=== PATIENT | male | born 1965 | race Caucasian/White ===

== ENCOUNTER 2016-10-16 13:44 | Inpatient (IN) | payer OTHER ==
--- NOTE | ~2016-10-16 | IDS ---
Interim Discharge Summary [facility] [address] [place]. [address] NAME: ROCAEL CORREA : 63 STATUS : ADM IN [facility]#: [id number] AGE: 51 ADM/REG DATE : 10/16/16 MR#: [id number] REPORT SERV DATE: 10/20/16 DICTATED BY: DOV KINGSLEY DATE: 10/20/16 REPORT STATUS : Draft TRANSCRIBED BY: MODIsaac DATE: 10/20/16 ADMISSION DATE: 10/16/2016 DISCHARGE DATE: INTERIM DISCHARGE DIAGNOSES: 1. Acute cerebrovascular accident - left hemiplegia. 2. Hypertension. 3. Hypotension. 4. Tobacco abuse. 5. Previous alcohol abuse in the past. PROCEDURES: 1. EEG, 10/17/2016, concern for seizure-like activity due to the presence of rhythmic sharp activities originating from the T5 electrode with field of spray to the left central parietal area. 2. MRI of the head, 10/16/2016, showed a late hyperacute infarction of the hypothalamus, thalamus, brainstem, and cerebral peduncular region. 3. 2D echocardiogram, 10/17/2016, shows an EF of 60%-65%. Mild diastolic dysfunction. Normal RV and LV size and function. No evidence of ASD or PFO on agitated saline contrast study. No valvular problems. HOSPITAL COURSE: A 51-year-old male, admitted 10/16/2016, with evidence of stroke-like symptoms, affecting his left arm and left leg with significant weakness along with left facial droop. He was given tPA in the emergency room with the guidance of Neurology, Dr. Sarah Jimenez. He temporarily got improvement of his symptoms before he even left the emergency room. However, he subsequently developed a return of his left-sided hemiplegia symptoms. He had subsequent noncontrast CT of the head that did not show any evidence of acute bleed. There was some concern that he did have seizure activity on his EEG, so Neurology did start antiepileptic medications. At the recommendation of Neurology, he was put on pressors that included dopamine and Levophed because of borderline low normal blood pressure. Those eventually were able to be weaned off over the subsequent couple of days. His cortisol level is normal at that time. Neurology requested a ASAEL to rule out embolic stroke source. It was supposed to be done on Friday, but he had some applesauce for his swallow study. It is supposed to be done tomorrow on 10/21. He did pass a swallow study and he is eating. He still has significant deficits on his left side involving his left arm and left leg and left face. He is able to move a little bit of his fingers and has a little bit of extensor push on his legs against resistance. OT and PT are following. CEP/MODL Dov Kingsley DO / [id number] Interim Discharge Summary [address] [address] NAME: ROCAEL CORREA : 63 STATUS : ADM IN PAT#: [id number] AGE: 51 ADM/REG DATE : 10/16/16 MR#: [id number] REPORT SERV DATE: 10/20/16 DICTATED BY: DOV KINGSLEY DATE: 10/20/16 REPORT STATUS : Draft TRANSCRIBED BY: MODL DATE: 10/20/16 CC: Dov Kingsley DO
--- NOTE | ~2016-10-16 | HP ---
History And Physical [place] [id number] [facility] [place]. [address] NAME: ROCAEL CORREA : 63 STATUS : ADM IN [facility]#: [id number] AGE: 51 ADM/REG DATE : 10/16/16 MR#: [id number] REPORT SERV DATE: 10/16/16 DICTATED BY: DOV KINGSLEY DATE: 10/16/16 REPORT STATUS : Draft TRANSCRIBED BY: MODIsaac DATE: 10/16/16 DATE OF ADMISSION: 10/16/2016 HISTORY OF PRESENT ILLNESS: This is a 51-year-old white male, who is a , comes to the hospital because of new-onset left arm and left leg numbness and weakness. He states the symptoms started with his left arm and then progressed to his leg. He states that it felt like his arm and leg were asleep. He also states that he was dropping things like his phone today when he was trying to hold them. He was evaluated in the emergency room and it was determined that he was having an acute CVA. A noncontrast CT scan of the brain was ordered and it did not show any evidence of bleeding. He ruled in for a tPA. His initial NIH scale was a 4. Dr. Sarah Jimenez saw the patient and ordered tPA to be given. By the time I saw the patient, it was already running. In discussion with the nurse, and after my examination neurologically, it appears that his symptoms of his left arm and left leg weakness are in fact improving. The patient denies any history of any previous stroke. He states he has been having some problems with intermittent dizziness recently. He also is a heavy smoker of one and half packs per day, and he also has hypertension. They did a CTA of the neck and brain that showed no evidence of significant arterial abnormalities within the neck or brain. REVIEW OF SYSTEMS: Denies any shortness of breath, cough, chest pain. No nausea, vomiting, abdominal pain, or seizures. PAST MEDICAL HISTORY: He has had a seizure in the past related to benzodiazepine withdrawal, hypertension, anxiety, previous heavy alcohol abuse, but quit two years ago. Disability due to previous fracture of different vertebrae of the spine. PAST SURGICAL HISTORY: None significant. ALLERGIES: NONE. SOCIAL HISTORY: Heavy smoker of one and half packs per day. He has been smoking since age 16. Former heavy alcohol use, but quit two years ago. He is and does have four children. Lives with his mother. HOME MEDICATIONS: Awaiting for Pharmacy to reconcile. FAMILY HISTORY: Had uncle who had black lung. Also had a grandmother who had cancer. PHYSICAL EXAMINATION: VITAL SIGNS: Per nursing flow sheet. GENERAL: Able to sustain a conversation. No acute distress. Maintains good eye contact. Maybe slight slurring of his speech. NEUROLOGIC: GCS 15. Slight slurring of speech. He complains of some left-sided numbness of his face. He has pretty equal strength in both left and right upper extremities and left History And Physical [address] [place]. [address] NAME: ROCAEL CORREA : 63 STATUS : ADM IN [facility]#: [id number] AGE: 51 ADM/REG DATE : 10/16/16 MR#: [id number] REPORT SERV DATE: 10/16/16 DICTATED BY: DOV KINGSLEY DATE: 10/16/16 REPORT STATUS : Draft TRANSCRIBED BY: MODL DATE: 10/16/16 lower and right lower extremities. Nursing says that this has markedly improved. HEENT: Pupils are equal, round, and reactive to light. Throat is clear. No teeth in the upper and poor dentition in the bottom. NECK: Trachea midline. HEART: Regular rate and rhythm. LUNGS: Clear to auscultation bilaterally. GASTROINTESTINAL: Soft, nontender, nondistended. EXTREMITIES: No edema, cyanosis, or clubbing. LABORATORY DATA: Labs reviewed. ASSESSMENT AND PLAN: 1. Acute cerebrovascular accident. 2. Hypertension. 3. Tobacco abuse. 4. Previous alcohol abuse. Stroke protocol has already been implemented. Getting tPA. MRI and echo are ordered along with fasting lipid profile. Also, ordered bronchodilators given his history of tobacco abuse and reported diagnosis of chronic obstructive pulmonary disease. He sees Dr. Lenka Dickey as an outpatient. CEP/MODL Dov Kingsley DO / [id number] CC: DO Lenka Alfaro M.D.
--- NOTE | ~2016-10-16 | DS ---
Discharge Summary [facility] [address] [facility] [place]. [address] NAME: ROCAEL CORREA : 63 STATUS : DIS IN PAT#: [id number] AGE: 51 ADM/REG DATE : 10/16/16 MR#: [id number] REPORT SERV DATE: 10/31/16 DICTATED BY: NATIVIDAD STANLEY DATE: 10/25/16 REPORT STATUS : Draft TRANSCRIBED BY: PAN DATE: 10/25/16 ADMISSION DATE: 10/16/2016 DISCHARGE DATE: 10/25/2016 CONSULTATION: 1. Cardiology, Cornelius Meredith M.D. 2. Neurology, Gillian Santana MD. INVASIVE PROCEDURE: Transesophageal echocardiogram. Conclusion, essentially normal ASAEL with no cardiac etiology for CVA identified. DISCHARGE DIAGNOSES: 1. Acute cerebrovascular accident. (Acute infarction of the hypothalamus, thalamus, brainstem, and cerebral peduncular region, not associated with mass effect or hemorrhagic conversion). 2. Left-sided hemiplegia, due to acute cerebrovascular accident. 3. Hypertension. 4. Tobacco abuse. 5. Post cerebrovascular accident depression. 6. Gastroesophageal reflux disease. 7. Dysphagia, secondary to cerebrovascular accident. HISTORY OF PRESENT ILLNESS: For detailed HPI, make reference to Dr. Dov Kingsley's dictation on 10/16/2016. In brief, this is a 51-year-old male, who presented to the emergency department with new onset left arm and left leg numbness and weakness. An assessment of acute CVA was made in the ER, the patient underwent a noncontrast CT of the brain that showed no evidence of bleeding. His initial NIH scale was 4. The patient received tPA in the ER. Post tPA the patient remains clinically stable. He subsequently underwent a CTA of the head and neck that showed no evidence of significant anterior abnormalities within the neck or brain. The patient was admitted to the ICU for monitoring. The patient was noted to have a transient improvement of his dense left-sided hemiplegia after tPA was administered and subsequently developed a return of the hemiplegia. A repeat noncontrast CT of the head did not show any hemorrhagic compression of acute CVA. The patient had an EEG that showed concern for epileptiform discharge, Keppra was added to patient's medication. The patient also received dopamine and Levophed for borderline low blood pressure while in the ICU because of borderline low normal blood pressure. He was subsequently weaned off from vasopressor after couple of days. Cardiology was consulted and recommended a ASAEL to evaluate for source of embolic stroke. A ASAEL was normal, showed no evidence of cardiac thrombus. The patient had a swallow study which he passed without any significant difficulty. The patient was placed on a regular diet. The patient was then transferred from the ICU to the cardiac telemetry floor. While in the cardiac telemetry floor, the patient was noted to have depressed affect with depressed mood, concerning for post CVA depression. He was started on Zoloft with some improvement in his depressed mood. Physical Therapy evaluated the patient and recommended acute rehabilitation. The patient was discharged to [facility] where he will undergo acute physical rehabilitation. Discharge Summary [address] [address] NAME: ROCAEL CORREA : 63 STATUS : DIS IN PAT#: [id number] AGE: 51 ADM/REG DATE : 10/16/16 MR#: [id number] REPORT SERV DATE: 10/31/16 DICTATED BY: NATIVIDAD STANLEY DATE: 10/25/16 REPORT STATUS : Draft TRANSCRIBED BY: PAN DATE: 10/25/16 DISCHARGE MEDICATIONS: 1. Aspirin 325 mg p.o. daily. 2. Atorvastatin 80 mg p.o. at bedtime. 3. Vitamin B12 100 mcg p.o. daily. 4. Folic acid 1 mg p.o. daily. 5. Keppra 750 mg p.o. q.12 hours. 6. Multivitamins one p.o. daily. 7. Nicotine patch. 8. Protonix 30 mg p.o. at breakfast. 9. Zoloft 50 mg p.o. daily. 10.Thiamine 100 mg p.o. daily. 11.Tylenol 325 mg p.o. p.r.n.. DISCHARGE CONDITION: Stable. DISCHARGE DISPOSITION: Acute rehab. FOLLOWUP: 1. Follow up with primary care physician within one to two weeks of discharged. 2. Follow up with Neurology within three to four weeks of discharge. DICTATED BY: MD TIERRA Gong/PAN Natividad Stanley MD / [id number] CC: MD Lenka Gong M.D. Allen E Atchley, M.D. Roza K. Adamczyk, MD [facility]
--- NOTE | ~2016-10-16 | CN ---
Consultation Report [facility] [address] [place]. [address] NAME: ROCAEL CORREA : 63 STATUS : ADM IN PAT#: [id number] AGE: 51 ADM/REG DATE : 10/16/16 MR#: [id number] REPORT SERV DATE: 10/16/16 DICTATED BY: DATE: REPORT STATUS : Draft TRANSCRIBED BY: MODL DATE: 10/16/16 NEUROLOGY CONSULTATION DATE OF CONSULTATION: 10/16/2016 REASON FOR CONSULT: Possible stroke. HISTORY OF PRESENT ILLNESS: This is a 51-year-old male who presented to [facility] secondary to acute onset of left upper extremity weakness with the patient reports symptoms started at roughly 11 a.m. on the day of evaluation. The patient reports since 10/12/2016, the patient has had waxing and waning symptom consists of lightheadedness, occurred while sitting down as well as standing up as well as problems with numbness that fluctuates with the patient noted to have left-sided weakness involving arm and leg with the patient dropping items since 11 a.m. on 10/16/2016. The patient reports over the past year or so, the patient does have some dysarthria and does not appear to have any worsening and no other worsening of dysarthria otherwise, no vision difficulties and no other complaints. The patient denies any recent changes in medication. Baseline does not take any aspirin. The patient reports he still smokes. The patient quit drinking roughly two years ago. PAST MEDICAL HISTORY: The patient previously does take blood pressure medications but after stopped drinking apparently, the blood pressure issue has resolved and the patient has not been taking any blood pressure medication at baseline. The patient reports in the past the patient has had to have blood donation once every month secondary to elevated hemoglobin and hematocrit numbers but has not been doing that ever since the patient stopped drinking. FAMILY HISTORY: Significant for prostate cancer. ALLERGIES: THE PATIENT REPORTS ALLERGY TO PENICILLIN. MEDICATIONS: Baseline does not take any anticoagulation and does not take any aspirin. Previously on blood pressure medications but not recently. REVIEW OF SYSTEMS: Negative except for those mentioned in the HPI. SOCIAL HISTORY: At the time of evaluation, the patient reports continued tobacco usage but denies current alcohol usage. PHYSICAL EXAMINATION: VITAL SIGNS: At the time of evaluation, the patient was noted to have vital signs with T- max of 98.0, heart rate of 102, respiration of 16, and blood pressure of 132/91. GENERAL: The patient is well developed, well nourished, in no acute distress. CARDIOVASCULAR EXAMINATION: Regular rate and rhythm. No carotid bruits were otherwise auscultated. PULMONARY: Examination was clear to auscultation bilaterally. NEUROLOGICAL Consultation Report [facility] [address] [place]. [address] NAME: ROCAEL CORREA : 63 STATUS : ADM IN [facility]#: [id number] AGE: 51 ADM/REG DATE : 10/16/16 MR#: [id number] REPORT SERV DATE: 10/16/16 DICTATED BY: DATE: REPORT STATUS : Draft TRANSCRIBED BY: MODL DATE: 10/16/16 EXAMINATION: Generally the patient is alert and oriented to person, place, year, and month. Follows simple 2-step commands. Mild dysarthria was noted. No aphasia was appreciated at the time of evaluation. Cranial nerves 2 through 12. Pupils equal, round, and reactive to light. Extraocular eye movement was noted to be intact with the patient reports decreased sensation in the left cranial nerve V1, V2, and V3 distribution. Mild decreased nasolabial fold on the left. Midline tongue. Normal palatal movement. Normal hearing. The patient demonstrated 5/5 right upper extremity and right lower extremity strength with the patient noted to have 4+ out of 5 left upper extremity and left lower extremity strength and no ataxia was otherwise seen at the time of evaluation. Deep tendon reflex was 2+ throughout. Gait was not evaluated secondary to acute symptoms. LABORATORY DATA: White blood cell count was noted to be 10.0, hemoglobin of 17.0, hematocrit of 49.3, and platelet count of 286. Chemistry panel is pending. CT scan of the brain without contrast demonstrated no acute process with CT angiogram head and neck demonstrated no acute thrombus. IMPRESSION: 1. Left-sided hemiparesis in a poor historian and with apparent waxing and waning symptoms since 10/12/2016, but since 11 a.m. on 10/16/2016, the patient was noted to have left upper extremity weakness and dropping items. The patient's NIH stroke scale was noted to be 4. Alteplase was administered at 1359 hours. The patient is to be admitted to the ICU for monitoring. We will perform stroke workup. RECOMMENDATIONS: 1. Admit to ICU. 2. MRI of the brain without contrast. 3. Lipitor 80 mg p.o. at bedtime. 4. PT, OT, and Speech Therapy. 5. Keep systolic blood pressure less than 180 mmHg. 6. Nicotine patch. 7. Echocardiogram with bubble study. 8. Fasting lipid panel and hemoglobin A1c. 9. We will check UDS. [facility]/MODL Sea Jimenez MD / [id number] CC: Dov Kingsley, DO Consultation Report [address] [address] NAME: ROCAEL CORREA : 63 STATUS : ADM IN [facility]#: [id number] AGE: 51 ADM/REG DATE : 10/16/16 MR#: [id number] REPORT SERV DATE: 10/16/16 DICTATED BY: DATE: REPORT STATUS : Draft TRANSCRIBED BY: MODL DATE: 10/16/16 Lenka Dickey M.D.
--- NOTE | ~2016-10-16 | EEG ---
Electroencephalogram [facility] [address] [place]. [address] NAME: ROCAEL CORREA : 63 STATUS : ADM IN [facility]#: [id number] AGE: 51 ADM/REG DATE : 10/16/16 MR#: [id number] REPORT SERV DATE: 10/17/16 DICTATED BY: DATE: REPORT STATUS : Draft TRANSCRIBED BY: MODL DATE: 10/17/16 NEUROLOGY EEG REPORT CLINICAL INDICATIONS: Obtundation. DESCRIPTION: This EEG was performed using 10/20 electrode placement system. During the EEG study, symmetric background activity was noted with predominant occipital rhythm of roughly 8 hertz. The patient, during the EEG study, was noted to have very frequent, almost persistent T5 rhythmic sharp-wave activity throughout the EEG evaluation. The patient was noted to have occasional field of spray to the T3 electrodes, as well as P3, C3, as well as CZ electrodes. Photic stimulation was performed. Hyperventilation was not performed during the EEG evaluation. The patient achieved drowsy state during the EEG study. The patient was noted to be more arousable during the EEG study, compared to the previous examination. INTERPRETATION: This EEG study obtained during awake and drowsy state may be considered abnormal secondary to almost persistent rhythmic sharp activities, mostly originating from the T5 electrode with a field of spray to the left central parietal area, as well as central electrodes concerning for possible partial seizure or complex partial seizure. Clinical correlation is otherwise recommended. [facility]/PAN Sea Jimenez MD / [id number] CC: DO Lenka Alfaro M.D.
--- NOTE | ~2016-10-16 | TEE ---
Transesophageal Echocardiogram [facility] [address] [place]. [address] NAME: ROCAEL CORREA : 63 STATUS : ADM IN [facility]#: [id number] AGE: 51 ADM/REG DATE : 10/16/16 MR#: [id number] REPORT SERV DATE: 10/21/16 DICTATED BY: CORNELIUS MEREDITH DATE: 10/21/16 REPORT STATUS : Draft TRANSCRIBED BY: MODL DATE: 10/21/16 INDICATION: This is a 51-year-old male with CVA to assess cardioembolic etiology. Informed consent was obtained, signed on the chart prior to proceeding. A time-out was performed. Sedation was per Anesthesia, and esophageal intubation was without difficulty. TECH: TD and the overall quality of study was good. FINDINGS: CHAMBERS: 1. Left atrium was grossly normal in size. The left atrial appendage was examined with multiple angulations. There was no thrombus identified. There was no mass seen. Left superior and right superior pulmonary veins were normal in caliber with normal color Doppler findings. 2. The left ventricle was normal in size with a visually estimated LVEF of 60%. There were no regional wall motion abnormalities. 3. The right atrium was normal in size. The superior and inferior vena cava appeared normal. There was a tiny Chiari network noted, normal variant anatomy. 4. The right ventricle was normal in size and systolic function. VALVES: 1. The aortic valve morphology was trileaflet. The aortic leaflets were fully mobile. There was no aortic regurgitation. There was no mass seen. 2. The mitral valve morphology was normal with fully mobile leaflets. There was trace mitral regurgitation. There was no mass seen. 3. The pulmonic valve was grossly normal with adequate mobility. There was no pulmonic regurgitation. 4. The tricuspid valve morphology was normal with fully mobile leaflets. There was no significant tricuspid regurgitation. OTHER: The interatrial septum was examined with multiple angulations. There was hyper- lipomatous thickening of the interatrial septal limbus. Fossa ovalis was intact with no evidence of PFO or ASD by visual inspection and no interatrial shunt seen by color Doppler. There was no pericardial effusion. The descending thoracic aorta and aortic arch were normal in caliber. There was no significant atherosclerosis seen. COMPLICATIONS: None. CONCLUSION: ESSENTIALLY NORMAL ASAEL WITH NO CARDIAC ETIOLOGY FOR CVA IDENTIFIED. [facility]/MODL Cornelius Meredith M.D. Transesophageal Echocardiogram [address] [place]. [address] NAME: ROCAEL CORREA : 63 STATUS : ADM IN PAT#: [id number] AGE: 51 ADM/REG DATE : 10/16/16 MR#: [id number] REPORT SERV DATE: 10/21/16 DICTATED BY: CORNELIUS MEREDITH DATE: 10/21/16 REPORT STATUS : Draft TRANSCRIBED BY: PAN DATE: 10/21/16 / [id number] CC: DO Lenka Alfaro M.D.
--- NOTE | ~2016-10-16 | CN ---
Consultation Report [facility] [address] [place]. [address] NAME: ROCAEL CORREA : 63 STATUS : ADM IN PAT#: [id number] AGE: 51 ADM/REG DATE : 10/16/16 MR#: [id number] REPORT SERV DATE: 10/21/16 DICTATED BY: KYLE ROMERO DATE: 10/21/16 REPORT STATUS : Draft TRANSCRIBED BY: MODIsaac DATE: 10/21/16 CARDIOLOGY CONSULTATION DATE OF CONSULTATION: REFERRING REASON: Request for internal loop recorder placement and ASAEL in the setting of acute CVA. HISTORY OF PRESENT ILLNESS: This is a pleasant 51-year-old white gentleman, who presented on 10/16 to [facility] with left arm and later left lower extremity weakness and was found to have acute CVA. He underwent comprehensive evaluation by Neurology Service and got tPA. He is slowly recovering, but still has persistent left-sided hemiparesis. There was no evidence of cardiac arrhythmia. He does not have history of any arrhythmias or prior CVA. He has a history of seizure disorder, alcohol abuse, smoking history, and hypertension. He was started on aspirin, Lipitor. Echocardiogram revealed preserved systolic function with EF 60% with mild diastolic dysfunction, but no evidence of PFO by bubble study. Per neurologist, Dr. Jimenez, there is some suspicion that he may have embolic CVA. CTA of the brain was negative, but the MRA suggested subacute hypothalamic infarction. He has some episodes of intermittent confusion on and off during the hospitalization. He has some mild dysarthria, but is able to comprehend. He is undergoing speech therapy and physical therapy. Initially, he is supposed to have a transesophageal echo on Friday, but had applesauce for swallow study, thus it has been moved to Friday. Later on, neurologist requested also implantation of the loop recorder. He is supposed to get both of them today per Dr. Hicks's note. Patient remains in normal sinus rhythm. The rest of review of systems negative. He has been ambulating until now without any difficulties. PAST MEDICAL HISTORY: 1. Hypertension. 2. Smoking dependency. 3. History of alcohol abuse and seizure disorder. 4. Anxiety. ALLERGIES: PENICILLIN. SOCIAL HISTORY: Patient quit drinking alcohol two years ago. He has a long history of alcohol abuse. He has been his smoking entire life, currently one pack a day. He was ambulating without any difficulties. He is . Lives with his mother. FAMILY HISTORY: Negative for sudden cardiac , premature coronary artery disease in the family. HOME MEDICATIONS: Only Xanax initially, now he is getting aspirin 325 mg once a day, atorvastatin 80 mg once a day, folic acid, Keppra 750 mg twice a day, multivitamin, Protonix 40 mg once a day, thiamine, Xanax 0.5 mg as needed, and nicotine patch. Consultation Report [facility] [id number] [place]. [address] NAME: ROCAEL CORREA : 63 STATUS : ADM IN PAT#: [id number] AGE: 51 ADM/REG DATE : 10/16/16 MR#: [id number] REPORT SERV DATE: 10/21/16 DICTATED BY: KYLE ROMERO DATE: 10/21/16 REPORT STATUS : Draft TRANSCRIBED BY: PAN DATE: 10/21/16 PHYSICAL EXAMINATION: GEN - No acute distress. Patient is drowsy but arousable. He followed commands appropriately. There is left hemiparesis noted. VITAL SIGNS: Blood pressure 139/74, heart rate 80 and regular. HEENT - Pupils reactive to light and accommodation. Moist mucosa membrane. NECK: No JVD. Normal carotid upstroke. No carotid bruits. LUNGS: Decreased breath sounds, but no crackles. COR: Normal S1, S2. No S3 or S4. No significant rub or murmurs. ABD: Soft, nontender, nondistended. EXT: No edema. Pedal pulses strong and equal bilaterally. SKIN: Warm with normal turgor. MS - No kyphosis. NEURO/PSY - Alert and oriented. Nonfocal. DATA: Electrolytes and CBC within normal limits. CT of the brain negative for acute pathology. MRI consistent with hypothalamic infarction. Chest x-ray, no acute pathology. Troponin x2 is negative. TSH is normal. On monitor, he remains in normal sinus rhythm. Initial electrocardiogram was sinus bradycardia, 51 beats per minute with nonspecific ST wave changes. Echocardiogram as above. ASSESSMENT/PLAN: Acute cerebrovascular accident, requiring tPA with persistent left hemiparesis, question of embolic source per neurology. Patient's echocardiogram was unremarkable with preserved systolic function with no evidence of patent foramen ovale. He remains in normal sinus rhythm. No evidence of cardiac arrhythmia. He was asymptomatic prior to this event. Per request of Neurology, he will have event monitor implanted today and ASAEL. He has been consented for ASAEL last week by myself, and I agreed to proceed. The risks and benefits explained to him. He was explained loop recorder today. Thank you for the consult. HILARIO/PAN Kyle Romero M.D. / [id number] CC: DO Lenka Alfaro M.D.
[~2016-10-16 13:44] MED LIST: HYGROTON 25 MG25 MG PO; KLOR-CON20 MEQ PO; MONODOX100 MG PO; NAP500 PO; NORV5 PO; PRILO PO; PRIN5 PO; REM15 PO; RETIN-A0.025 % EX; TREX PO; VIAGRA25 PO; XANAX1 MG PO; [UNRECOGNIZED DRUG - CODE] TOP
[2016-10-16 14:06] LABS: BASOPHILS 0.4 %; BASOPHILS ABSOLUTE 0.04 10/3/uL (0.0-0.16); EOSINOPHILS 1.3 %; EOSINOPHILS ABSOLUTE 0.13 10/3/uL (0.0-0.53); ER CBC TAT 0 Hrs 02 Mins; HEMATOCRIT 49.3 % (40.0-51.0); IMMATURE GRANULOCYTES 0.3 %; IMMATURE GRANULOCYTES ABSOLUTE 0.03 10/3/uL (0.0-0.11); LYMPHOCYTES 29.1 %; LYMPHOCYTES ABSOLUTE 2.91 10/3/uL (0.67-4.30); MANUAL DIFF NO %; MEAN CORPUS HGB CONC 34.5 g/dL (32.0-36.0); MEAN CORPUSCULAR HEMOGLOB 33.2 pg (26.0-34.0); MEAN CORPUSCULAR VOLUME 96.3 fL (80-100); MONOCYTES 5.2 %; MONOCYTES ABSOLUTE 0.52 10/3/uL (0.21-1.20); NEUTROPHILS 63.7 %; NEUTROPHILS ABSOLUTE 6.37 10/3/uL (2.02-8.40); PLATELET COUNT 286 10/3/uL (150-400); RBC DISTRIBUTION WIDTH 14.9 % (12.0-16.0); RED CELL COUNT 5.12 10/6/uL (4.7-6.1)
[2016-10-16 14:11] LABS: INTERNATIONAL NORMAL RATI 0.9 UNITS (-); PROTIME (NOT ORD) 12.5 SEC (12.0-14.5)
[2016-10-16] MEDS ORDERED: XANAX1 MG PO (14:27)
[2016-10-16 14:58] LABS: BUN (BLOOD UREA NITROGEN) 10 MG/DL (6-23); CALCIUM, SERUM 8.9 MG/DL (8.5-10.4); CHLORIDE, SERUM 106 MMOL/L (96-112); CO2 (CARBON DIOXIDE) 25 MMOL/L (24-34); CREATININE 0.87 MG/DL (0.70-1.30); GFR AFRICAN AMERICAN 115 ML/MIN (>=60); GFR NON AFRICAN AMERICAN 99 ML/MIN (>=60); GLUCOSE, SERUM 137 MG/DL (60-99); POTASSIUM, SERUM 3.3 MMOL/L (3.5-5.3); SODIUM, SERUM 138 MMOL/L (135-148); TROPONIN I <0.02 NG/ML (<0.05)
[2016-10-16 15:15] LABS: ALBUMIN 3.7 G/DL (3.5-5.0); ALKALINE PHOSPHATASE 107 U/L (45-117); GLOBULIN 3.8 G/DL (2.5-4.1); SGOT(AST) 16 U/L (5-40); SGPT(ALT) 21 U/L (5-65); TOTAL BILIRUBIN 0.4 MG/DL (0-1.2); TOTAL PROTEIN 7.5 G/DL (6.0-8.5)
[2016-10-16 23:23] LABS: CHOLESTEROL 156 MG/DL (< 200); CPK (IF ELEVATED MB BANDS) 67 U/L (0-200); FOLATE 2.6 NG/ML (>5.2); HDL CHOLESTEROL 26 MG/DL (> 39); LDL CHOLESTEROL 99 MG/DL (< 130); NON-HDL CHOLESTEROL 130 MG/DL (< 160); TRIGLYCERIDE 155 MG/DL (< 150); TROPONIN I <0.02 NG/ML (<0.05); ULTRASENSITIVE TSH 0.807 MCIU/ML (0.358-3.740)
[2016-10-17 04:17] LABS: BASOPHILS 0.4 %; BASOPHILS ABSOLUTE 0.03 10/3/uL (0.0-0.16); EOSINOPHILS ABSOLUTE 0.17 10/3/uL (0.0-0.53); HEMOGLOBIN 16.8 g/dL (13.6-17.8); IMMATURE GRANULOCYTES 0.2 %; IMMATURE GRANULOCYTES ABSOLUTE 0.02 10/3/uL (0.0-0.11); LYMPHOCYTES 37.2 %; LYMPHOCYTES ABSOLUTE 3.15 10/3/uL (0.67-4.30); MEAN CORPUSCULAR HEMOGLOB 33.6 pg (26.0-34.0); MEAN PLATELET VOLUME 10.1 fL (9.2-13.0); MONOCYTES 7.1 %; NEUTROPHILS 53.1 %; NEUTROPHILS ABSOLUTE 4.49 10/3/uL (2.02-8.40); PLATELET COUNT 269 10/3/uL (150-400); RBC DISTRIBUTION WIDTH 14.8 % (12.0-16.0); WHITE BLOOD CELLS 8.5 10/3/uL (4.5-10.5)
[2016-10-17 04:27] LABS: MANUAL DIFF NO %
[2016-10-17 04:29] LABS: BUN (BLOOD UREA NITROGEN) 10 MG/DL (6-23); CALCIUM, SERUM 8.5 MG/DL (8.5-10.4); CHLORIDE, SERUM 110 MMOL/L (96-112); CO2 (CARBON DIOXIDE) 27 MMOL/L (24-34); GFR AFRICAN AMERICAN 126 ML/MIN (>=60); GFR NON AFRICAN AMERICAN 109 ML/MIN (>=60); PHOSPHORUS, SERUM 2.6 MG/DL (2.5-4.5); POTASSIUM, SERUM 3.8 MMOL/L (3.5-5.3); SODIUM, SERUM 143 MMOL/L (135-148)
[2016-10-17 04:33] LABS: GLUCOSE, SERUM 75 MG/DL (60-99)
[2016-10-17 04:37] LABS: CHOL/HDL RATIO(NOT ORDER) 6.4 (0-5)
[2016-10-17 04:44] LABS: CPK 67 U/L (0-200); FREE T4 0.96 NG/DL (0.76-1.46); T4 (THYROXINE) TOTAL 8.4 MCG/DL (4.5-12.0); TROPONIN I <0.02 NG/ML (<0.05); ULTRASENSITIVE TSH 0.841 MCIU/ML (0.358-3.740)
[2016-10-17 04:46] LABS: CK-MB < 0.5 NG/ML
[2016-10-17 07:08] LABS: CPK (IF ELEVATED MB BANDS) 59 U/L (0-200); TROPONIN I <0.02 NG/ML (<0.05)
[2016-10-17 07:44] LABS: GLYCOHEMOGLOBIN (HbA1c) 5.4 % (4.7-6.1)
[2016-10-17 08:13] LABS: ALLENS TEST Pos; BE (BASE EXCESS) -0.6 MEQ/L (0 +/- 2.5); HEMOBLOGIN CONTENT 17.6 G/DL (14-18); INSTRUMENT SERIAL # 35151; METHEMOGLOBIN 0.6 % (0-3); O2 CONTENT 21.7 VOL% (18-24); OPERATOR ID 31928; PCO2 (CO2 TENSION) 40 MMHG (35-45); PO2 (O2 TENSION) 55 MMHG (79-93); SAMPLE Arterial
[2016-10-17 10:09] LABS: PROCALCITONIN <0.05 ng/mL (<0.5)
[2016-10-17 15:35] LABS: AMPHETAMINES (NOT ORD) NEG (NEG); BARBITURATES (NOT ORDERED NEG (NEG); BENZODIAZEPINES (NOT ORD) POS (NEG); CANNABINOIDS (THC) NEG (NEG); COCAINE (NOT ORDERED) NEG (NEG); OPIATES NEG (NEG); PHENCYCLIDINE(PCP) NEG (NEG); TRICYCLICS NEG (NEG)
[2016-10-18 05:10] LABS: BASOPHILS 0.2 %; BASOPHILS ABSOLUTE 0.02 10/3/uL (0.0-0.16); EOSINOPHILS 0.4 %; EOSINOPHILS ABSOLUTE 0.05 10/3/uL (0.0-0.53); HEMATOCRIT 50.8 % (40.0-51.0); HEMOGLOBIN 17.4 g/dL (13.6-17.8); IMMATURE GRANULOCYTES 0.2 %; IMMATURE GRANULOCYTES ABSOLUTE 0.03 10/3/uL (0.0-0.11); LYMPHOCYTES 21.1 %; LYMPHOCYTES ABSOLUTE 2.71 10/3/uL (0.67-4.30); MEAN CORPUS HGB CONC 34.3 g/dL (32.0-36.0); MEAN CORPUSCULAR HEMOGLOB 32.5 pg (26.0-34.0); MEAN PLATELET VOLUME 10.3 fL (9.2-13.0); MONOCYTES 7.8 %; NEUTROPHILS 70.3 %; NEUTROPHILS ABSOLUTE 9.03 10/3/uL (2.02-8.40); PLATELET COUNT 296 10/3/uL (150-400); RBC DISTRIBUTION WIDTH 14.5 % (12.0-16.0); RED CELL COUNT 5.35 10/6/uL (4.7-6.1)
[2016-10-18 05:22] LABS: MANUAL DIFF NO %; WHITE BLOOD CELLS 12.8 10/3/uL (4.5-10.5)
[2016-10-18 05:30] LABS: CALCIUM, SERUM 8.9 MG/DL (8.5-10.4); CHLORIDE, SERUM 106 MMOL/L (96-112); CO2 (CARBON DIOXIDE) 26 MMOL/L (24-34); CREATININE 0.71 MG/DL (0.70-1.30); GFR AFRICAN AMERICAN 125 ML/MIN (>=60); GFR NON AFRICAN AMERICAN 108 ML/MIN (>=60); PHOSPHORUS, SERUM 2.1 MG/DL (2.5-4.5); SODIUM, SERUM 138 MMOL/L (135-148)
[2016-10-18 05:34] LABS: BUN (BLOOD UREA NITROGEN) 5 MG/DL (6-23); GLUCOSE, SERUM 126 MG/DL (60-99)
[2016-10-18 09:34] LABS: CREATININE 0.8 MG/DL (0.70-1.30)
[2016-10-19 04:07] LABS: BASOPHILS 0.2 %; BASOPHILS ABSOLUTE 0.02 10/3/uL (0.0-0.16); EOSINOPHILS 1.5 %; EOSINOPHILS ABSOLUTE 0.15 10/3/uL (0.0-0.53); HEMATOCRIT 47.1 % (40.0-51.0); HEMOGLOBIN 16.1 g/dL (13.6-17.8); IMMATURE GRANULOCYTES 0.1 %; IMMATURE GRANULOCYTES ABSOLUTE 0.01 10/3/uL (0.0-0.11); LYMPHOCYTES 31.8 %; LYMPHOCYTES ABSOLUTE 3.19 10/3/uL (0.67-4.30); MEAN CORPUS HGB CONC 34.2 g/dL (32.0-36.0); MEAN CORPUSCULAR HEMOGLOB 32.9 pg (26.0-34.0); MEAN CORPUSCULAR VOLUME 96.1 fL (80-100); MEAN PLATELET VOLUME 9.9 fL (9.2-13.0); MONOCYTES 8.7 %; MONOCYTES ABSOLUTE 0.87 10/3/uL (0.21-1.20); NEUTROPHILS 57.7 %; NEUTROPHILS ABSOLUTE 5.79 10/3/uL (2.02-8.40); PLATELET COUNT 283 10/3/uL (150-400); RBC DISTRIBUTION WIDTH 14.8 % (12.0-16.0)
[2016-10-19 04:08] LABS: MANUAL DIFF NO %
[2016-10-19 04:31] LABS: BUN (BLOOD UREA NITROGEN) 7 MG/DL (6-23); CALCIUM, SERUM 8.6 MG/DL (8.5-10.4); CHLORIDE, SERUM 106 MMOL/L (96-112); CO2 (CARBON DIOXIDE) 30 MMOL/L (24-34); GFR AFRICAN AMERICAN 134 ML/MIN (>=60); GFR NON AFRICAN AMERICAN 116 ML/MIN (>=60); GLUCOSE, SERUM 101 MG/DL (60-99); PHOSPHORUS, SERUM 1.7 MG/DL (2.5-4.5); POTASSIUM, SERUM 3.6 MMOL/L (3.5-5.3); SODIUM, SERUM 140 MMOL/L (135-148)
[2016-10-19 10:33] LABS: PHOSPHORUS, SERUM 2.6 MG/DL (2.5-4.5)
[2016-10-20 04:29] LABS: BASOPHILS 0.3 %; BASOPHILS ABSOLUTE 0.04 10/3/uL (0.0-0.16); EOSINOPHILS 2.8 %; EOSINOPHILS ABSOLUTE 0.38 10/3/uL (0.0-0.53); HEMATOCRIT 50.2 % (40.0-51.0); HEMOGLOBIN 16.8 g/dL (13.6-17.8); IMMATURE GRANULOCYTES 0.3 %; IMMATURE GRANULOCYTES ABSOLUTE 0.04 10/3/uL (0.0-0.11); LYMPHOCYTES 24.5 %; LYMPHOCYTES ABSOLUTE 3.32 10/3/uL (0.67-4.30); MEAN CORPUS HGB CONC 33.5 g/dL (32.0-36.0); MEAN CORPUSCULAR HEMOGLOB 32.6 pg (26.0-34.0); MEAN CORPUSCULAR VOLUME 97.5 fL (80-100); MEAN PLATELET VOLUME 10.3 fL (9.2-13.0); MONOCYTES 7.7 %; MONOCYTES ABSOLUTE 1.05 10/3/uL (0.21-1.20); NEUTROPHILS 64.4 %; NEUTROPHILS ABSOLUTE 8.72 10/3/uL (2.02-8.40); PLATELET COUNT 244 10/3/uL (150-400); RBC DISTRIBUTION WIDTH 15.1 % (12.0-16.0); RED CELL COUNT 5.15 10/6/uL (4.7-6.1); WHITE BLOOD CELLS 13.6 10/3/uL (4.5-10.5)
[2016-10-20 04:32] LABS: MANUAL DIFF NO %
[2016-10-20 04:53] LABS: CALCIUM, SERUM 9.1 MG/DL (8.5-10.4); CHLORIDE, SERUM 106 MMOL/L (96-112); CO2 (CARBON DIOXIDE) 27 MMOL/L (24-34); CREATININE 0.75 MG/DL (0.70-1.30); GFR AFRICAN AMERICAN 122 ML/MIN (>=60); GFR NON AFRICAN AMERICAN 105 ML/MIN (>=60); POTASSIUM, SERUM 4.1 MMOL/L (3.5-5.3); SODIUM, SERUM 138 MMOL/L (135-148)
[2016-10-20 04:54] LABS: BUN (BLOOD UREA NITROGEN) 12 MG/DL (6-23); GLUCOSE, SERUM 65 MG/DL (60-99)
[2016-10-21 06:32] LABS: BASOPHILS 0.3 %; BASOPHILS ABSOLUTE 0.03 10/3/uL (0.0-0.16); EOSINOPHILS 3.8 %; EOSINOPHILS ABSOLUTE 0.38 10/3/uL (0.0-0.53); HEMATOCRIT 46.4 % (40.0-51.0); HEMOGLOBIN 15.8 g/dL (13.6-17.8); IMMATURE GRANULOCYTES 0.2 %; IMMATURE GRANULOCYTES ABSOLUTE 0.02 10/3/uL (0.0-0.11); LYMPHOCYTES 28.4 %; LYMPHOCYTES ABSOLUTE 2.83 10/3/uL (0.67-4.30); MEAN CORPUS HGB CONC 34.1 g/dL (32.0-36.0); MEAN CORPUSCULAR HEMOGLOB 32.4 pg (26.0-34.0); MEAN CORPUSCULAR VOLUME 95.3 fL (80-100); MEAN PLATELET VOLUME 10.3 fL (9.2-13.0); MONOCYTES 7.9 %; MONOCYTES ABSOLUTE 0.79 10/3/uL (0.21-1.20); NEUTROPHILS 59.4 %; NEUTROPHILS ABSOLUTE 5.93 10/3/uL (2.02-8.40); PLATELET COUNT 246 10/3/uL (150-400); RBC DISTRIBUTION WIDTH 15.2 % (12.0-16.0); RED CELL COUNT 4.87 10/6/uL (4.7-6.1)
[2016-10-21 06:34] LABS: MANUAL DIFF NO %
[2016-10-21 06:46] LABS: BUN (BLOOD UREA NITROGEN) 13 MG/DL (6-23); CALCIUM, SERUM 9.1 MG/DL (8.5-10.4); CHLORIDE, SERUM 107 MMOL/L (96-112); CO2 (CARBON DIOXIDE) 24 MMOL/L (24-34); CREATININE 0.67 MG/DL (0.70-1.30); GFR AFRICAN AMERICAN 128 ML/MIN (>=60); GFR NON AFRICAN AMERICAN 110 ML/MIN (>=60); GLUCOSE, SERUM 76 MG/DL (60-99); POTASSIUM, SERUM 3.8 MMOL/L (3.5-5.3); SODIUM, SERUM 140 MMOL/L (135-148)
[2016-10-21 06:47] LABS: PHOSPHORUS, SERUM 2.7 MG/DL (2.5-4.5)
[2016-10-21 07:49] LABS: BASOPHILS 0.4 %; BASOPHILS ABSOLUTE 0.04 10/3/uL (0.0-0.16); EOSINOPHILS 3.8 %; EOSINOPHILS ABSOLUTE 0.36 10/3/uL (0.0-0.53); HEMATOCRIT 45.4 % (40.0-51.0); HEMOGLOBIN 15.9 g/dL (13.6-17.8); IMMATURE GRANULOCYTES 0.3 %; IMMATURE GRANULOCYTES ABSOLUTE 0.03 10/3/uL (0.0-0.11); LYMPHOCYTES 28.3 %; LYMPHOCYTES ABSOLUTE 2.65 10/3/uL (0.67-4.30); MEAN CORPUSCULAR HEMOGLOB 33.3 pg (26.0-34.0); MEAN CORPUSCULAR VOLUME 95.2 fL (80-100); MEAN PLATELET VOLUME 10.1 fL (9.2-13.0); MONOCYTES 7.3 %; MONOCYTES ABSOLUTE 0.68 10/3/uL (0.21-1.20); NEUTROPHILS 59.9 %; NEUTROPHILS ABSOLUTE 5.61 10/3/uL (2.02-8.40); PLATELET COUNT 233 10/3/uL (150-400); RBC DISTRIBUTION WIDTH 15.2 % (12.0-16.0); RED CELL COUNT 4.77 10/6/uL (4.7-6.1); WHITE BLOOD CELLS 9.4 10/3/uL (4.5-10.5)
[2016-10-21 07:51] LABS: INTERNATIONAL NORMAL RATI 1.1 UNITS (-); PROTIME (NOT ORD) 13.8 SEC (12.0-14.5)
[2016-10-21 07:53] LABS: MANUAL DIFF NO %
[2016-10-21 07:59] LABS: BUN (BLOOD UREA NITROGEN) 14 MG/DL (6-23); CALCIUM, SERUM 9.1 MG/DL (8.5-10.4); CHLORIDE, SERUM 107 MMOL/L (96-112); CO2 (CARBON DIOXIDE) 25 MMOL/L (24-34); CREATININE 0.67 MG/DL (0.70-1.30); GFR AFRICAN AMERICAN 128 ML/MIN (>=60); GFR NON AFRICAN AMERICAN 110 ML/MIN (>=60); GLUCOSE, SERUM 84 MG/DL (60-99); POTASSIUM, SERUM 3.8 MMOL/L (3.5-5.3); SODIUM, SERUM 138 MMOL/L (135-148)
[2016-10-22 06:39] LABS: BASOPHILS 0.3 %; BASOPHILS ABSOLUTE 0.03 10/3/uL (0.0-0.16); EOSINOPHILS 3.5 %; EOSINOPHILS ABSOLUTE 0.39 10/3/uL (0.0-0.53); HEMATOCRIT 47.1 % (40.0-51.0); IMMATURE GRANULOCYTES 0.3 %; IMMATURE GRANULOCYTES ABSOLUTE 0.03 10/3/uL (0.0-0.11); LYMPHOCYTES 23.8 %; LYMPHOCYTES ABSOLUTE 2.66 10/3/uL (0.67-4.30); MEAN CORPUSCULAR HEMOGLOB 32.7 pg (26.0-34.0); MEAN CORPUSCULAR VOLUME 96.1 fL (80-100); MEAN PLATELET VOLUME 10.6 fL (9.2-13.0); MONOCYTES 7.6 %; MONOCYTES ABSOLUTE 0.85 10/3/uL (0.21-1.20); NEUTROPHILS 64.5 %; NEUTROPHILS ABSOLUTE 7.23 10/3/uL (2.02-8.40); PLATELET COUNT 275 10/3/uL (150-400); RBC DISTRIBUTION WIDTH 15.1 % (12.0-16.0); WHITE BLOOD CELLS 11.2 10/3/uL (4.5-10.5)
[2016-10-22 06:40] LABS: MANUAL DIFF NO %
[2016-10-22 06:42] LABS: PROTIME (NOT ORD) 13.5 SEC (12.0-14.5)
[2016-10-22 06:50] LABS: CHLORIDE, SERUM 106 MMOL/L (96-112); CO2 (CARBON DIOXIDE) 25 MMOL/L (24-34); CREATININE 0.61 MG/DL (0.70-1.30); GFR AFRICAN AMERICAN 133 ML/MIN (>=60); GFR NON AFRICAN AMERICAN 115 ML/MIN (>=60); GLUCOSE, SERUM 71 MG/DL (60-99); POTASSIUM, SERUM 3.7 MMOL/L (3.5-5.3); SODIUM, SERUM 139 MMOL/L (135-148)
[2016-10-22 06:51] LABS: BUN (BLOOD UREA NITROGEN) 18 MG/DL (6-23)
[2016-10-23 11:04] LABS: INSTRUMENT SERIAL # 11843
[2016-10-23 11:05] LABS: ALLENS TEST Pos; BE (BASE EXCESS) 1.4 MEQ/L (0 +/- 2.5); CARBOXYHEMOGLOBIN 0.5 % (0-3); HCO3 (ACTUAL BICARBONATE) 25.7 MEQ/L (23-27); HEMOBLOGIN CONTENT 17.7 G/DL (14-18); METHEMOGLOBIN 0.5 % (0-3); O2 CONTENT 22.6 VOL% (18-24); PCO2 (CO2 TENSION) 40 MMHG (35-45); PO2 (O2 TENSION) 62 MMHG (79-93); SAMPLE Arterial; pH 7.43 (7.37-7.43)
== END 2016-10-25 14:15 | DRG 40 ==
LOC: ER 13:44 → CCU 14:43 → 1SO 10-20 12:06
PROVIDERS: Emergency Medicine; Hospitalist; Internal Medicine Cardiovascular Disease; Internal Medicine Pulmonary Disease; Psychiatry & Neurology Neurology
PROC: 3E03317 Introduction of Other Thrombolytic into Peripheral Vein, Percutaneous Approach (ICD-10-PCS; 2016-10-16)
PROC: 02HV33Z Insertion of Infusion Device into Superior Vena Cava, Percutaneous Approach (ICD-10-PCS; 2016-10-17)
PROC: 4A02X4A Measurement of Cardiac Electrical Activity, Guidance, External Approach (ICD-10-PCS; 2016-10-17)
PROC: B246ZZ4 Ultrasonography of Right and Left Heart, Transesophageal (ICD-10-PCS; 2016-10-21)
PROC: 0JH632Z Insertion of Monitoring Device into Chest Subcutaneous Tissue and Fascia, Percutaneous Approach (ICD-10-PCS; principal; 2016-10-22)
DX: I63.449 Cerebral infarction due to embolism of unspecified cerebellar artery (principal); G93.40 Encephalopathy, unspecified; G81.94 Hemiplegia, unspecified affecting left nondominant side; G40.209 Localization-related (focal) (partial) symptomatic epilepsy and epileptic syndromes with complex partial seizures, not intractable, without status epilepticus; I95.9 Hypotension, unspecified; R13.10 Dysphagia, unspecified; I10 Essential (primary) hypertension; K21.9 Gastro-esophageal reflux disease without esophagitis; R29.810 Facial weakness; R47.1 Dysarthria and anarthria; F41.8 Other specified anxiety disorders; R29.704 NIHSS score 4; F17.210 Nicotine dependence, cigarettes, uncomplicated; Z79.82 Long term (current) use of aspirin; Z79.899 Other long term (current) drug therapy; Z88.0 Allergy status to penicillin
CPT/HCPCS: 33282; 36415; 36569; 36600; 70450; 70496; 70498; 70551; 71010; 74230; 80048; 80053; 80061; 80305; 81001; 82140; 82530; 82533; 82550; 82553; 82607; 82746; 82805; 82962; 83036; 83735; 84100; 84132; 84145; 84436; 84439; 84443; 84484; 85025; 85610; 85730; 86850; 86900; 86901; 87641; 92523-GN; 92610-GN; 92611-GN; 93005; 93312; 93320; 93325; 95816; 96374; 97110-GO; 97110-GP; 97112-GO; 97112-GP; 97163-GP; 97164-GP; 97166-GO; 97530-GO; 97530-GP; 97535-GO; 99291; A9270-GY; C1751; C1764; C8929; C9113; G8978-CL-GP; G8978-CN-GP; G8979-CL-GP; G8980-CL-GP; J0690; J1953; J2997; J3411; P9045; Q9957; Q9967